=== PATIENT | female | born 1980 | race American Indian/Alaskan Native ===

== ENCOUNTER 2019-12-23 15:36 | Emergency (ER) | payer OTHER ==
[2019-12-23] MEDS ORDERED: oxyCODONE /ACETAMINOPHEN 5-325MG TAB PO ONE (17:30)
--- NOTE | 2019-12-23 17:39 | Emergency Department Report ---
<KUNAL HERNANDEZ - Last Filed: 12/23/19 18:31> ED Eye Problem HPI - General Chief complaint: Eye Problems Stated complaint: EYE PAIN,SWELLING Time Seen by Provider: 12/23/19 16:50 Source: patient Mode of arrival: Ambulatory Limitations: No Limitations - History of Present Illness Initial comments: 39-year-old -[place] female patient presents with complaints of left eye pain and swelling starting yesterday. She denies any trauma to the eye or vision changes, however she does admit to increased pain with eye movements especially when looking upward. She rates her current pain as a 8/10 in severity. Patient reports her eye was crusted shut upon waking this morning. She denies any itching, changes in her products, or new medications/foods. -: Sudden - Related Data Previous Rx's Medication Instructions Recorded Last Taken Type Erythromycin [Erythromycin Ophth 1 strip OS QID 10 Days #1 tube 12/23/19 Unknown Rx Oint] Allergies Allergy/AdvReac Type Severity Reaction Status Date / Time No Known Allergies Allergy Unverified 12/23/19 15:55 ED Review of Systems Constitutional: denies: chills, fever Eyes: eye pain, eye discharge. denies: vision change ENT: denies: throat pain Respiratory: denies: cough Cardiovascular: denies: chest pain Gastrointestinal: denies: nausea, vomiting Neurological: denies: headache, weakness, numbness, paresthesias ED Past Medical Hx - Past Medical History Previous Medical History?: Yes Hx Asthma: Yes - Surgical History Past Surgical History?: Yes Additional Surgical History: x 2 - Social History Smoking Status: Current Every Day Smoker - Medications Home Medications: Home Medications Medication Instructions Recorded Confirmed Last Taken Type Erythromycin [Erythromycin Ophth 1 strip OS QID 10 Days #1 tube 12/23/19 Unknown Rx Oint] ED Physical Exam - General Limitations: No Limitations General appearance: alert, in no apparent distress, obese - Head Head exam: Present: atraumatic, normocephalic - Eye Eye exam: Present: PERRL, EOMI (pain in left eye with EOMs), periorbital swelling (moderate to severe left upper lid, mild lower lid ). Absent: scleral icterus - ENT ENT exam: Present: normal orophraynx, mucous membranes moist - Neck Neck exam: Present: normal inspection, full ROM - Respiratory Respiratory exam: Present: normal lung sounds bilaterally. Absent: respiratory distress - Cardiovascular Cardiovascular Exam: Present: regular rate, normal rhythm - Neurological Exam Neurological exam: Present: alert, oriented X3, normal gait - Psychiatric Psychiatric exam: Present: normal affect, normal mood - Skin Skin exam: Present: warm, dry, intact, normal color. Absent: rash ED Medical Decision Making - Lab Data Result diagrams: 12/23/19 17:46 12/23/19 17:46 Lab Results 12/23/19 12/23/19 12/23/19 Range/Units 17:46 17:46 18:08 WBC 7.5 (4.5-11.0) K/mm3 RBC 4.37 (3.65-5.03) M/mm3 Hgb 10.6 (10.1-14.3) gm/dl Hct 34.2 (30.3-42.9) % MCV 78 L (79-97) fl MCH 24 L (28-32) pg MCHC 31 (30-34) % RDW 16.8 H (13.2-15.2) % Plt Count 223 (140-440) K/mm3 Lymph % (Auto) 15.6 (13.4-35.0) % [place] % (Auto) 11.3 H (0.0-7.3) % Eos % (Auto) 0.3 (0.0-4.3) % Baso % (Auto) 0.7 (0.0-1.8) % Lymph # 1.2 (1.2-5.4) K/mm3 [place] # 0.8 (0.0-0.8) K/mm3 Eos # 0.0 (0.0-0.4) K/mm3 Baso # 0.1 (0.0-0.1) K/mm3 Seg Neutrophils % 72.1 H (40.0-70.0) % Seg Neutrophils # 5.4 (1.8-7.7) K/mm3 Sodium 139 (137-145) mmol/L Potassium 4.2 (3.6-5.0) mmol/L Chloride 103.4 (98-107) mmol/L Carbon Dioxide 22 (22-30) mmol/L Anion Gap 18 mmol/L BUN 9 (7-17) mg/dL Creatinine 0.7 (0.7-1.2) mg/dL Estimated GFR > 60 ml/min BUN/Creatinine Ratio 13 % Glucose 83 (65-100) mg/dL Calcium 9.2 (8.4-10.2) mg/dL Total Bilirubin 0.20 (0.1-1.2) mg/dL AST 15 (5-40) units/L ALT 13 (7-56) units/L Alkaline Phosphatase 87 (35-129) units/L Total Protein 7.3 (6.3-8.2) g/dL Albumin 3.8 L (3.9-5) g/dL Albumin/Globulin Ratio 1.1 % Urine HCG, Qual Negative (Negative) ED Disposition Clinical Impression: Irritation of left eye Disposition: DC- TO HOME OR SELFCARE Condition: Stable Instructions: Conjunctivitis (ED) Additional Instructions: CAT scan is negative for any cyst infection of the eye. Please take erythromycin for conjunctivitis. Tylenol or ibuprofen as needed for pain. Follow-up with your primary care provider if symptoms persist or gets worse. Prescriptions: Erythromycin [Erythromycin Ophth Oint] 1 strip OS QID 10 Days #1 tube Referrals: PRIMARY CARE, [Primary Care Provider] - 3-5 Days Forms: Work/School Release Form(ED) <MATTI CALVO - Last Filed: 12/23/19 22:54> ED Review of Systems ROS: Stated complaint: EYE PAIN,SWELLING Other details as noted in HPI ED Course Vital Signs 12/23/19 12/23/19 15:55 18:53 Temperature 98.6 F Pulse Rate 77 69 Respiratory 18 18 Rate Blood Pressure 139/75 Blood Pressure 140/87 [Left] O2 Sat by Pulse 99 99 Oximetry ED Medical Decision Making - Lab Data Result diagrams: 12/23/19 17:46 12/23/19 17:46 - Radiology Data Radiology results: report reviewed Print Report Referring Physician:KUNAL HERNANDEZPatient Name:FAROOQ MONICA EV HESSPatient ID:[id number] of :[id number]:FemaleAccession:[id number] Date:[id number] Status:Finalized Findings [facility] [address] [place] [address] Cat Scan Report Signed Patient: FAROOQ VIVAS MR #: [id number] : 1980 Acct:[id number] Age/Sex: 39 / F ADM Date: 12/23/19 Loc: ED Attending Dr: Ordering Physician: KUNAL HERNANDEZ Date of Service: 12/23/19 Procedure(s): CT facial bones w con Accession Number(s): [id number] cc: KUNAL MARY CT scan of the orbits: HISTORY: Swelling in the left high; pain FINDINGS: Following intravenous injection of 100 MR left Omnipaque 300, thin section transverse images were obtained. Both ocular globes are normal. Preseptal space is normal. Retrobulbar are spaces normal. Suboccipital space is normal. Both lacrimal glands are prominent symmetrically. Bony remodeling is seen along the medial wall of left orbit and floor of the left orbit probably due to old healed trauma. Dehiscence is seen in the median nasal septum. This could be postsurgical or chemical. Anterior skull base is normal. Maxillary sinuses and ethmoid air cells are normal. Mucosal thickening is seen in the right lateral recess of the sphenoid sinus. Cavernous sinuses are normal. IMPRESSION: No orbital cellulitis; preseptal space is normal; both lacrimal glands appear prominent symmetrically All CT scans at this location are performed using CT dose reduction for ALARA by means of automated exposure control. - Medical Decision Making 39-year-old -[place] female patient presents with complaints of left eye pain and swelling starting yesterday. She denies any trauma to the eye or vision changes, however she does admit to increased pain with eye movements especially when looking upward. She rates her current pain as a 8/10 in sever ity. Patient reports her eye was crusted shut upon waking this morning. She denies any itching, changes in her products, or new medications/foods. CT of orbital is negative for any periorbital cellulitis. Patient to take Benadryl Tylenol or ibuprofen for pain management. Will place patient on e rythromycin ophthalmic ointment. Follow-up with the primary care provider. Critical care attestation.: If time is entered above; I have spent that time in minutes in the direct care of this critically ill patient, excluding procedure time. ED Disposition Is pt being admited?: No Does the pt Need Aspirin: No
[2019-12-23 18:05] LABS: Basophils # (Auto) 0.1 K/mm3 (0.0-0.1); Basophils % (Auto) 0.7 % (0.0-1.8); Eosinophils % (Auto) 0.3 % (0.0-4.3); Hematocrit 34.2 % (30.3-42.9); Hemoglobin 10.6 gm/dl (10.1-14.3); Lymphocytes # (Auto) 1.2 K/mm3 (1.2-5.4); Lymphocytes % (Auto) 15.6 % (13.4-35.0); Mean Corpuscular HGB Conc 31 % (30-34); Mean Corpuscular Volume 78 fl (79-97); Monocytes # (Auto) 0.8 K/mm3 (0.0-0.8); Monocytes % (Auto) 11.3 % (0.0-7.3); Platelet Count 223 K/mm3 (140-440); Red Blood Count 4.37 M/mm3 (3.65-5.03); Red Cell Distribution Width 16.8 % (13.2-15.2)
[2019-12-23 18:15] LABS: HCG Qualitative,Urine Negative (Negative)
[2019-12-23 18:18] LABS: Alanine Aminotransferase 13 units/L (7-56); Albumin 3.8 g/dL (3.9-5); BUN/Creatinine Ratio 13; Blood Urea Nitrogen 9 mg/dL (7-17); Calcium 9.2 mg/dL (8.4-10.2); Hemolysis Index 8
[2019-12-23 18:56] VITALS: BP 140/87
--- NOTE | 2019-12-23 22:00 | Cat Scan Report ---
CT scan of the orbits: HISTORY: Swelling in the left high; pain FINDINGS: Following intravenous injection of 100 MR left Omnipaque 300, thin section transverse image s were obtained. Both ocular globes are normal. Preseptal space is normal. Retrobulbar are spaces normal. Suboccipital space is normal. Both lacrimal glands are prominent symmetrically. Bony remodeling is seen along the medial wall of left orbit and floor of the left orbit probably due to old healed trauma. Dehiscence is seen in the median nasal septum. This could be postsurgical or chemical. Anterior skull base is normal. Maxillary sinuses and ethmoid air cells are normal. Mucosal thickening is seen in the right lateral r ecess of the sphenoid sinus. Cavernous sinuses are normal. IMPRESSION: No orbital cellulitis; preseptal space is normal; both lacrimal glands appear prominent s ymmetrically All CT scans at this location are performed using CT dose reduction for ALARA by means of automated e xposure control. Signer Name: Elham Zambrano MD Signed: 12/23/2019 9:56 PM Workstation Name: [id number]
== END 2019-12-23 22:17 | disposition home or self-care (01) ==
LOC: ED 15:36
DX: H57.12 Ocular pain, left eye (principal); J45.909 Unspecified asthma, uncomplicated; F17.200 Nicotine dependence, unspecified, uncomplicated; Z98.890 Other specified postprocedural states; Z79.2 Long term (current) use of antibiotics
CPT/HCPCS: 36415; 70487; 80053; 81025; 85025; 99284; Q9967